=== PATIENT | female | born 1980 | race African-American/Black ===

== ENCOUNTER → 2022-10-14 | Day surgery (SDC) | payer BC ==
[~2022-10-14] MED LIST: Acetaminophen 500 MG TAB ONE; Iron Sucrose Complex 500 MG in Sodium Chloride 0.9% 250 ML 250 ML IVPB SCH
[2022-10-14 09:20] VITALS: BMI 26.0
== END ==
LOC: CSHSDC/OP 08:45
PROVIDERS: ATTEND Family Medicine
DX: K90.9 Intestinal malabsorption, unspecified (principal)
CPT/HCPCS: J1756; J7050

== ENCOUNTER 2023-01-18 18:07 | Emergency (ER) | payer BC, SELFPAY ==
[2023-01-18 18:54] LABS: #Eosinphils 0.1 10x3/uL (0.0-0.5); #Monocytes 0.5 10x3/uL (0.0-1.1); #Neutrophils 4.5 10x3/uL (1.5-8.4); %Basophils 0.4 % (0.0-2.0); %Lymphocytes 24.6 % (18.0-47.0); %Monocytes 7.4 % (0.0-10.0); %Neutrophils 66.3 % (40.0-75.0); Hemoglobin 10.5 g/dL (12.0-15.5); Mean Corpuscular HGB CONC 31.1 g/dL (32.0-36.0); Mean Corpuscular Hemoglobin 25.2 pg (27.0-33.0); Mean Corpuscular Volume 81.3 fl (81.6-98.3); Mean Platelet Volume 10.6 fl (7.4-10.4); Platelet Count 299 10x3/uL (150-450); RBC Distribution Width 18.1 % (11.5-14.5); Red Blood Cell (RBC) Count 4.16 10x6/uL (3.90-5.03); White Blood Cell (WBC) Count 6.9 10x3/uL (3.5-10.5)
[2023-01-18 19:01] LABS: Bilirubin Neg (Negative); Blood, Urine Negative (Negative); Clarity Slightly Cloudy (Clear); Glucose, Urine (Dipstick) Normal (Negative); Ketone, Urine Negative (Negative); Leukocyte 25 (Negative); Nitrite Positive (Negative); Protein, Urine (Dipstick) Negative (Neg-Trace); Specific Gravity, Urine 1.005 (1.005-1.030); Urobilinogen Normal mg/dL (Less than 2)
[2023-01-18 19:05] LABS: Pregnancy Test - Urine (BHCG) Negative (Negative); Pregu Control Background? CLEAR/WHITE (CLR/WHITE); Pregu Control Bar Appear? YES (CONTROL BAR); Specific Gravity 1.005 (1.002-1.036)
[2023-01-18 19:07] LABS: CAUTI Indications for Culture Alt mental st,lethar; RBC/HPF 0-3 HPF (0-3); WBC/HPF 0-3 HPF (0-3)
[2023-01-18 19:08] LABS: Bacteria/HPF 3+ HPF (None Seen); Trichomonas/HPF Rare HPF (None Seen)
[2023-01-18 19:10] LABS: Urine Culture Reflex No No
[2023-01-18 19:16] LABS: ALT (SGPT) 27 U/L (8-55); AST (SGOT) 32 U/L (5-34); Alkaline Phosphatase 78 U/L (40-110); Anion Gap 16 mmol/L (10-20); BUN (Urea Nitrogen) 9 mg/dL (7.0-18.7); Bilirubin, Total 0.4 mg/dL (0.2-1.2); Calc. Creatinine Clearance 0 mL/min (70-130); Calcium 9.5 mg/dL (7.8-10.44); Carbon Dioxide 25 mmol/L (22-29); Chloride 100 mmol/L (98-107); Estimated GFR 75; Globulin 3.6 g/dL (2.4-3.5); Glucose 105 mg/dL (70-105); Lipase 29 U/L (8-78); Potassium 3.5 mmol/L (3.5-5.1); Protein, Total 7.6 g/dL (6.0-8.3); Sodium 137 mmol/L (136-145)
== END 2023-01-18 19:55 | disposition home or self-care (01) ==
LOC: CSHERS 18:07
DX: R07.9 Chest pain, unspecified (principal); I10 Essential (primary) hypertension; A59.9 Trichomoniasis, unspecified; N39.0 Urinary tract infection, site not specified; F17.220 Nicotine dependence, chewing tobacco, uncomplicated
CPT/HCPCS: 71045; 80053; 81001; 81025; 83690; 84484; 85025; 93005